=== PATIENT | male | born 1985 | race Caucasian/White ===

== ENCOUNTER 2020-03-26 07:08 | Outpatient (NON) | payer OTHER, BC, SELFPAY ==
[2020-03-26 18:47] LABS: SARS-CoV-2 RNA PCR Negative
== END 2020-03-26 07:09 ==
PROVIDERS: PCP Family Medicine; Visit Provider Family Medicine Adolescent Medicine
DX: Z20.822 Contact with and (suspected) exposure to COVID-19 (principal)
CPT/HCPCS: C9803; U0003; U0005